=== PATIENT | female | born 1975 | race Caucasian/White ===

== ENCOUNTER 2024-04-30 18:25 | Observation (INO) ==
--- NOTE | 2024-04-30 19:57 | Emergency Department Note ---
History of Present Illness General Chief complaint: Medication Request Stated complaint: ALLERGIC REACTION TO MEDS,INSOMNIA Time Seen by Provider: 04/30/24 19:12 History of Present Illness This is a 49-year-old female that presents to the emergency department via private vehicle with complaints of "insomnia, intermittent vision change, left ear ringing". The patient notes that months ago she began with trouble sleeping. She only sleeps a few hours every night. She notes trialing a variety of medicines with minimal relief. She does note intermittent vision change and intermittent left ear ringing. She notes at times she will feel a palpitation. She denies history of similar but states that the above symptoms have been ongoing intermittently for several months now. She states that she has been to several hospitals, inpatient mental health at [facility], and has seen her PCP several times with continuation of symptoms. Patient does note intermittent sensation of hot and chills. She notes history of splenectomy. No fever. No SI or HI. Home Medications Medication Instructions Recorded Confirmed Type No Known Home Medications 04/30/24 04/30/24 History Allergies Allergy/AdvReac Type Severity Reaction Status Date / Time prednisone Allergy Mild Unknown Verified 04/30/24 23:01 Corticosteroids AdvReac Mild HIGH DOSES Verified 04/28/24 11:02 (Glucocorticoids) CAUSES CONFUSION/PSYCHOSIS diphenhydramine AdvReac hyperactivi Verified 04/30/24 23:01 [From Benadryl] ty olanzapine AdvReac Agitated Verified 04/30/24 23:01 Past Med/Surg History Problem List (Updated 05/01/24 @ 03:07 by Tano Mcduffie PA-C) Cognitive complaints Restless sleeper Snoring Memory change Ataxia Change in hearing (Acute) Vertigo Tinnitus (Acute) Anxiety about health Insomnia (Acute) Medical History Vitamin D deficiency Leukocytosis Chronic since 2003 since her splenectomy Surgical History History of splenectomy Family History (Updated 03/10/24 @ 08:35 by Barb Ritchie) Mother Dyslipidemia Thyroid disease Father Diabetes Hypertension Heart disease Brother Dyslipidemia Grandmother Diabetes Social History Smoking Status: Current some day smoker Tobacco Type: Cigarettes Second Hand Exposure: No; Do You Dip or Chew Tobacco: No; Tobacco Cessation Education Requested by Patient: No Hx Alcohol Use: No Hx Substance Use: No Preferred Language: Bulgarian Communication Ability: Effective Visual Impairment: Limited Hearing Ability: Normal Flight Information Expediter Required: No Beliefs That Will Affect Care: None marital status: Life Partner Current Living Situation: Spouse current occupational status: employed Feels Safe at Home: Yes Safety Concerns: Feels Safe At This Time Childhood Exposure to Second-Hand Smoke: No Diet: regular caffeine: No Dental Care, Regularly: Yes Physical Activity Frequency: 1-2 Times per Week Seatbelt Use: always Sunscreen Use: No Assistive Devices: Glasses Review of Systems A total of 10 systems reviewed and were otherwise negative Physical Exam Vital Signs Vital Signs - 24 hr 04/30/24 18:29 04/30/24 22:43 Temperature 36.4 C L Temperature Source Temporal Artery Scan Pulse Rate 98 H Pulse Rate [Right Finger] 80 Pulse Rhythm [Right Finger] Regular Pulse Strength [Right Finger] Normal Respiratory Rate 22 18 Respiratory Effort / Characteristics Non-Labored Non-Labored Respiratory Depth Normal Normal Respiratory Pattern Regular Blood Pressure 160/96 H Blood Pressure [Right Arm] 130/84 Blood Pressure Mean 117 Blood Pressure Mean [Right Arm] 99 Blood Pressure Position [Right Arm] Sitting Pulse Oximetry 96 99 Oxygen Delivery Method Room Air Room Air Sepsis Recent Fever Within 48 Hours No Sepsis New/Unexplained Change in Mental Status No Sepsis Action Taken by Nursing No Action Required VITAL SIGNS - Vital signs and nursing notes were reviewed. Stable and afebrile. GENERAL -49-year-old female appearing her stated age who is in no acute distress. Communicates well with provider and answers questions appropriately. SKIN - Without rashes. No meningeal or petechial rash. HEAD - NC/AT. EYES - PERRL with EOMI bilaterally. Sclera anicteric. EARS - No deformities of external structures noted on gross examination bilaterally. NOSE - Midline and without cyanosis. No epistaxis or purulent drainage noted. MOUTH/OROPHARYNX - Without perioral cyanosis. NECK - Neck with FROM. No nuchal rigidity. LUNGS - CTA CARDIAC - RRR EXTREMITIES - No clubbing or peripheral cyanosis. +5/5 strength noted in UE/LE bilaterally. NEUROLOGIC - Cranial nerves II through XII grossly intact. PSYCH - alert, oriented and pleasant on exam. Medical Decision Making Laboratory Data 04/30/24 22:24 04/30/24 23:05 Lab Results 04/30/24 04/30/24 Range/Units 22:24 23:05 WBC 20.34 H (4.8-10.8) K/ul RBC 4.66 (4.20-5.40) M/uL Hgb 14.7 (12.0-16.0) g/dl Hct 42.8 (37.0-47.0) % MCV 91.8 (80.0-100.0) fL MCH 31.5 (25.0-34.0) pg MCHC 34.3 (32.0-36.0) g/dL RDW Std Deviation 48.8 H (36.4-46.3) fL RDW Coeff of Luis Fernando 14.4 (11.5-14.5) % Plt Count 412 H (130-400) K/uL MPV 10.0 (9.4-12.4) fL Immature Gran % (Auto) 0.4 % Neut % (Auto) 57.1 % Lymph % (Auto) 31.7 % [place] % (Auto) 9.2 % Eos % (Auto) 1.3 % Baso % (Auto) 0.3 % Neut # (Auto) 11.62 H (1.40-6.50) K/uL Lymph # (Auto) 6.44 H (1.20-3.40) K/uL [place] # (Auto) 1.87 H (0.11-0.59) K/uL Eos # (Auto) 0.26 (0.00-0.50) K/uL Baso # (Auto) 0.07 (0.00-0.20) K/uL Immature Gran # (Auto) 0.08 (0.01-0.20) K/uL ESR 23 H (0-20) mm/hr Sodium 139 (136-145) mmol/L Potassium TNP 4.0 Chloride 106 (98-107) mmol/L Carbon Dioxide 28 (21-32) mmol/L Anion Gap 5 (3-11) BUN 14 (6-23) mg/dl Creatinine 0.59 L (0.6-1.2) mg/dl Est Cr Clr Drug Dosing 104.8 ml/min eGFR 111.79 BUN/Creatinine Ratio 23.7 H (10-20) Glucose 134 H (70-99(Fasting)) mg/dl Calcium 9.7 (8.6-10.3) mg/dl Total Bilirubin 0.4 (0.2-1.0) mg/dl AST TNP 13 ALT 18 (7-52) U/L Alkaline Phosphatase 78 (34-104) U/L C-Reactive Protein < 0.50 (0-0.5) mg/dl Total Protein 7.2 (6.0-8.3) gm/dl Albumin 4.3 (3.4-5.0) gm/dl Globulin 2.9 (2.5-4.0) gm/dl Albumin/Globulin Ratio 1.5 (0.9-2) Procalcitonin Cancelled < 0.02 TSH 1.458 (0.300-4.500) uIu/ml Free T4 0.94 (0.61-1.60) ng/dl MDM Narrative Patient was seen and evaluated as above in room D01a. Review was performed of triage nursing notes and vital signs. I did review pertinent previous visits and patient history. After obtaining a thorough history and physical examination the above work up was performed. Patient presents to us today for evaluation of insomnia, as well as intermittent vision change and intermittent left-sided tinnitus. The patient also notes intermittent agitation. She questions if she could be experiencing serotonin syndrome and inquires about cyproheptadine. Options of care were discussed with the patient. I did recommend labs however the nurse then came to me and noted that the patient then was refusing labs. I went to bedside and the patient noted that she was anxious about what the labs or imaging may uncover and then went on to state how she does not think this is just anxiety. I informed the patient that I would like to evaluate for other medical causes of her symptoms. She was then agreeable. Labs were drawn. Leukocytosis similar to previous 20.34. No anemia. ESR mildly elevated at 23. Metabolic panel without emergent finding. Patient does inquire about hospitalization. I recommended imaging and then she noted she wanted to hold off on imaging. I did consult the hospitalist service. Ultimately plan will be for admission, please refer to further documentation regarding her stay. GCS: 15 In the evaluation and treatment of this patient the following differential diagnoses were entertained: Electrolyte disturbance, infection, mental health ideology, structural abnormalities within the brain, among others. Impression & Plan Insomnia, Change in hearing, Tinnitus Discharge Plan Visit Data Chief Complaint: Medication Request Stated Complaint: ALLERGIC REACTION TO MEDS,INSOMNIA ED Provider: [facility] ED Midlevel Provider: Tano Mcduffie Discharge Problem: Insomnia, Change in hearing, Tinnitus Patient Disposition: Admitted As Inpatient Condition: Good Discharge Instructions Interventions: ED Discharge Assessment Last Done: 05/01/24 02:13
[2024-04-30 22:48] LABS: Hematocrit (blood only) 42.8 % (37.0-47.0); Hemoglobin 14.7 g/dl (12.0-16.0); Mean Corpuscular Hemoglobin 31.5 pg (25.0-34.0); Mean Corpuscular Hgb Conc 34.3 g/dL (32.0-36.0); Mean Corpuscular Volume 91.8 fL (80.0-100.0); Platelet Count 412 K/uL (130-400); RDW Coefficient of Variation 14.4 % (11.5-14.5); RDW Standard Deviation 48.8 fL (36.4-46.3); Red Blood Count 4.66 M/uL (4.20-5.40); White Blood Count 20.34 K/ul (4.8-10.8)
[2024-04-30 23:11] LABS: Alanine Aminotransferase 18 U/L (7-52); Albumin Globulin Ratio 1.5 (0.9-2); Albumin Level 4.3 gm/dl (3.4-5.0); Alkaline Phosphatase 78 U/L (34-104); Anion Gap 5 (3-11); BUN Creatinine Ratio 23.7 (10-20); Bilirubin,Total 0.4 mg/dl (0.2-1.0); Blood Urea Nitrogen 14 mg/dl (6-23); C Reactive Protein < 0.50 mg/dl (0-0.5); Calcium 9.7 mg/dl (8.6-10.3); Carbon Dioxide 28 mmol/L (21-32); Chloride 106 mmol/L (98-107); Creatinine Clr Calc Pharmacy 104.8 ml/min; Globulin 2.9 gm/dl (2.5-4.0); Glucose 134 mg/dl (70-99(Fasting)); Sodium 139 mmol/L (136-145); Total Protein 7.2 gm/dl (6.0-8.3)
[2024-04-30 23:17] LABS: Basophils # (auto) 0.07 K/uL (0.00-0.20); Basophils % (auto) 0.3 %; Eosinophils # (auto) 0.26 K/uL (0.00-0.50); Eosinophils % (auto) 1.3 %; Immature Granulocytes # (auto) 0.08 K/uL (0.01-0.20); Immature Granulocytes % (auto) 0.4 %; Lymphocytes # (auto) 6.44 K/uL (1.20-3.40); Lymphocytes % (auto) 31.7 %; Monocytes # (auto) 1.87 K/uL (0.11-0.59); Monocytes % (auto) 9.2 %; Neutrophils # (auto) 11.62 K/uL (1.40-6.50); Neutrophils % (auto) 57.1 %
[2024-04-30 23:26] LABS: Thyroid Stimulating Hormone 1.458 uIu/ml (0.300-4.500)
--- NOTE | 2024-04-30 23:54 | History & Physical Report ---
Date of Service April 30, 2024 Assessment & Plan (1) Insomnia: (2) Tinnitus: Plan 49 yo female with no significant past medical history besides prior splenectomy admitted for insomnia and chronic tinnitus. Over the last several months the patient has developed chronic insomnia usually sleeping only a maximum of one hour at a time. #Insomnia/Tinnitus unclear etiology. differential is broad CT scan obtained, plan for MRI B12, folate, RPR ordered LH, FSH, T3, T4 ordered Peripheral smear sent Homocysteine Autoimmune labs ordered CBC, CMP, Mag for AM UA negative UDS negative FENGI: regular Code status: full DVT prophylaxis: low risk Isolation: none Disposition: med/tele History of Present Illness Primary Care Provider: Nadir eNwman DO 49 yo female with no significant past medical history besides prior splenectomy admitted for insomnia and chronic tinnitus. Over the last several months the patient has developed chronic insomnia usually sleeping only a maximum of one hour at a time. Reportedly has not had more than a few hours of sleep since January. Was recently at the [facility] where she was evaluated and diagnosed with anxiety. She has been on a number of psychoactive medications, most recently was started on Seroquel 100mg qHS. Continues to have insomnia that she states is making her life miserable. She has also developed persistent tinnitus (after the insomnia) that is severely impacting her quality of life. She does report some degree of ataxia and cognitive difficulty. ED Course UDS, UCx ordered. UA negative for infection Allergies Allergy/AdvReac Type Severity Reaction Status Date / Time prednisone Allergy Mild Unknown Verified 04/30/24 23:01 Corticosteroids AdvReac Mild HIGH DOSES Verified 04/28/24 11:02 (Glucocorticoids) CAUSES CONFUSION/PSYCHOSIS diphenhydramine AdvReac hyperactivi Verified 04/30/24 23:01 [From Benadryl] ty olanzapine AdvReac Agitated Verified 04/30/24 23:01 Home Medications Medication Instructions Recorded Confirmed Type No Known Home Medications 04/30/24 04/30/24 History Past Med/Surg History Problem List (Updated 05/01/24 @ 03:07 by Tano Mcduffie PA-C) Cognitive complaints Restless sleeper Snoring Memory change Ataxia Change in hearing (Acute) Vertigo Tinnitus (Acute) Anxiety about health Insomnia (Acute) Medical History Vitamin D deficiency Leukocytosis Chronic since 2003 since her splenectomy Surgical History History of splenectomy Family History (Updated 03/10/24 @ 08:35 by Barb Ritchie) Mother Dyslipidemia Thyroid disease Father Diabetes Hypertension Heart disease Brother Dyslipidemia Grandmother Diabetes Social History Smoking Status: Current some day smoker Tobacco Type: Cigarettes Second Hand Exposure: No; Do You Dip or Chew Tobacco: No; Hx Alcohol Use: No Hx Substance Use: No Preferred Language: Syriac Communication Ability: Effective Visual Impairment: Limited Hearing Ability: Normal Sorting Cows Worker Required: No Beliefs That Will Affect Care: None marital status: Life Partner Current Living Situation: Spouse current occupational status: employed Feels Safe at Home: Yes Childhood Exposure to Second-Hand Smoke: No Diet: regular caffeine: No Dental Care, Regularly: Yes Physical Activity Frequency: 1-2 Times per Week Seatbelt Use: always Sunscreen Use: No Assistive Devices: Glasses Review of Systems Review of Systems: reviewed, per HPI Physical Exam Physical Exam: Constitutional: well-appearing, no acute distress HEENT: NCAT, no conjunctival injection CV: well perfused Resp: no increased work of breathing GI: nondistended MSK: no gross deformities appreciated Skin: warm, dry, no rash appreciated Neuro: alert, oriented, no focal neurologic deficit appreciated Results & Data Results & Data Vital Signs (Past 12 Hours) Vital Signs Temp Pulse Pulse Resp BP BP Pulse Ox 04/30/24 22:43 80 18 130/84 99 04/30/24 18:29 36.4 C L 98 H 22 160/96 H 96 O2 Del Method 04/30/24 22:43 Room Air 04/30/24 18:29 Room Air Supervising Physician Co-Signing Physician Notes Attending addendum: I have physically seen this patient, have supervised the medical billing assistant's activities, and agree with the H&P unless as otherwise noted. Assessment and Plan: The patient is a 49-year-old female with past medical history significant for splenectomy, chronic insomnia, anxiety who presents to the emergency department with worsening issues with sleeping over the past number of months, and associated tinnitus. [facility]. Insomnia/tinnitus- Admit to monitored bed Ordering CTA head and neck Patient will need MRI of brain/IAC, however, MRI unavailable this evening Ordering vitamin B12, folate, RPR, LH, FSH, TSH, free T4, free T3, peripheral smear, homocystine, lupus anticoagulant, antiphospholipid antibody, beta-2 microglobulin Patient has been on a number of medications in the outpatient setting with out success in improving symptoms, and further medications would not be attempted at this time Remaining orders and notations as noted Resident Activity Tracking Resident Involvement: Resident Care Provided Care Provided: Adult [facility] Medicine
[2024-05-01 00:55] LABS: T4 Free Thyroxine 0.94 ng/dl (0.61-1.60)
[2024-05-01 01:27] LABS: Folate (Folic Acid),Ser orPlas 16.93 ng/ml (>5.38)
--- NOTE | 2024-05-01 01:48 | CT Scan Report ---
EXAM: CT head/brain wo con CLINICAL HISTORY: tinnitus, insomnia TECHNIQUE: Multiple axial images are obtained from the skull base to the vertex without contrast. CT scan was performed according to ALARA (as low as reasonable achievable). COMPARISON: None. FINDINGS: The brain shows normal morphology, attenuation, and volume for age. No evidence of space occupying lesion, hemorrhage, edema, mass effect, midline shift, extra axial collection, or hydrocephalus is noted. Ventricles, sulci, and basal cisterns are symmetric and normal in size and configuration. The sen-white matter differentiation is preserved. Visualized paranasal sinuses and mastoid air cells are well aerated. Orbital contents are within normal limits. Bony structures are intact. IMPRESSION: 1. No evidence of acute intracranial abnormality is demonstrated Electronically signed by Grzegorz Chaudhry 05-01-2024 01:48 AM
[2024-05-01] MEDS ORDERED: MAGNESIUM HYDROXIDE SUSP 30 ML UDC PO PRN (02:13)
[2024-05-01] MEDS ORDERED: MELATONIN 3 MG TAB PO PRN (02:13)
[2024-05-01] MEDS ORDERED: ONDANSETRON INJ 2 MG/ML 2 ML VIAL IV PRN (02:13)
[2024-05-01] MEDS ORDERED: ALUMINUM/MAGNESIUM SUSP 30 ML UDC PO PRN (02:13)
[2024-05-01] MEDS ORDERED: POLYETHYLENE (MIRALAX) 17 GM PACK PO PRN (02:13)
[2024-05-01] MEDS ORDERED: ACETAMINOPHEN 500 MG TAB PO PRN (02:13)
[2024-05-01 02:54] LABS: Follicle Stimulating Hormone 9.33 IU/L
[2024-05-01 02:55] LABS: Luteinizing Hormone 3.87 IU/L
[2024-05-01 03:51] LABS: Appearance Urine Cloudy (Clear); Bacteria Urine Automated 3+ (None Seen); Bilirubin Urine 1+ (Negative); Blood Urine Negative (Negative); Cast Urine Automated 0-2 /lpf (0-2); Color Urine Dark Yellow; Glucose Urine UA Negative (Negative); Ketones Urine Trace (Negative); Leukocyte Esterase Urine Trace (Negative); Mucus Urine Present (None Prsent); Nitrite Urine Negative (Negative); Protein Urine Negative (Negative); RBC Urine Automated >20 /hpf (0-2); Specific Gravity Urine 1.022 (1.000-1.030); Urobilinogen Urine Negative (Negative); pH Urine 5.5 (4.5-7.5)
[2024-05-01 03:52] LABS: Amphetamines+Metham, Urine Neg (Neg); Barbiturates, Urine Neg (Neg); Benzodiazepine, Urine Neg (Neg); Cocaine, Urine Neg (Neg); Fentanyl, Urine Neg (Neg); MDMA (Ecstacy), Urine Neg (Neg); Marijuana, Urine Pos (Neg); Methadone, Urine Neg (Neg); Opiate, Urine Neg (Neg); Phencyclidine, Urine Neg (Neg)
[2024-05-01] MEDS: LORazepam 1 MG TAB PO PRN (11:23)
--- NOTE | 2024-05-01 13:06 | Magnetic Resonance Report ---
EXAM: MR brain wo con CLINICAL HISTORY: Insomnia TECHNIQUE: MRI of the brain was performed without contrast with multiplanar sequences obtained. COMPARISON: No previous studies are available for comparison. FINDINGS: Brain Parenchyma: No evidence of acute infarction or hemorrhage. Normal sen-white matter differentiation. No mass lesions or focal cortical abnormalities were identified. Ventricles and Sulci: Normal size and configuration of the lateral ventricles, third ventricle, and fourth ventricle. No evidence of hydrocephalus or ventriculomegaly. Sylvian fissures, sulci, and cisterns are within normal limits. Posterior Fossa: The cerebellum and brainstem appear normal without evidence of mass lesions or signal abnormalities. Cranial Nerves: Normal course and appearance of cranial nerves identified. Vessels: No evidence of vascular malformations or aneurysms. Intracranial arteries and veins appear normal without evidence of stenosis or occlusion. Orbits and Skull Base: Orbits and skull base structures are normal without evidence of abnormalities. IMPRESSION: 1. No acute intracranial abnormality was identified. 2. Normal appearance of brain parenchyma, ventricular system, posterior fossa, cranial nerves, vessels, orbits, and skull base. Electronically signed by Luis Alfredo Theodore 05-01-2024 13:06 PM
[2024-05-01] MEDS ORDERED: LORazepam 1 MG TAB PO PRN (17:31)
--- NOTE | 2024-05-01 18:33 | Magnetic Resonance Report ---
MRI brain of the IACs History: Hearing or balance changes Comparison: Same-day MRI Technique: Multiphasic, multisequence MRI of the IACs performed with and without IV contrast. 7 mL Gadavist IV. Findings: High resolution T2 weighted images through the brainstem show the internal auditory canals appear clear. No CPA mass. No abnormal IAC enhancement. Impression: Normal MRI of the IACs. Electronically signed by Andreas Kauffman 05-01-2024 6:33 PM
[2024-05-01] MEDS ORDERED: ZOLPIDEM TARTRATE 5 MG TAB PO PRN (20:40)
[2024-05-01] MEDS ORDERED: ZOLPIDEM TARTRATE 5 MG TAB PO SCH (21:00)
--- NOTE | 2024-05-01 22:44 | Hospitalist Progress Note ---
Date of Service May 01, 2024 Assessment & Plan (1) Insomnia: (2) Tinnitus: Plan 49 yo female with no significant past medical history besides prior splenectomy admitted for insomnia and chronic tinnitus. Over the last several months the patient has developed chronic insomnia usually sleeping only a maximum of one hour at a time. #Insomnia/Tinnitus unclear etiology. differential is broad CT scan obtained, plan for MRI B12, folate, RPR ordered LH, FSH, T3, T4 ordered Peripheral smear sent Homocysteine Autoimmune labs ordered CBC, CMP, Mag for AM UA negative UDS negative MRI BRAIN completed, awaiting IAC component as this was a test Dr. Ruddy dimas in the outpatient setting. Ordered benzo with melatonin. Will reports she has tried all other classes of medications for insomnia which do not help including trazodone, mirtazepine, among other. Patient has appointment with sleep medicine provider in May. FENGI: regular Code status: full DVT prophylaxis: low risk Isolation: none Disposition: med/tele Admission and Anticipated Discharge Date Admission Date: April 30, 2024 Subjective 49 yo female reports no new symptoms. She remains concerned about her isomnia. Physical Exam Physical Exam: Constitutional: well-appearing, no acute distress HEENT: NCAT, no conjunctival injection CV: well perfused Resp: no increased work of breathing GI: nondistended MSK: no gross deformities appreciated Skin: warm, dry, no rash appreciated Neuro: alert, oriented, no focal neurologic deficit appreciated Results & Data Results & Data Vital Signs (Past 12 Hours) Vital Signs Temp Pulse Pulse Resp BP Pulse Ox O2 Del Method 05/01/24 20:41 36.5 C 96 H 16 124/82 98 Room Air 05/01/24 17:30 36.7 C 86 18 132/78 98 Room Air 05/01/24 11:00 36.7 C 89 18 137/81 97 Room Air 05/01/24 10:53 83 PG Care Time/CCT Total # of Minutes Spent Total Time Spent with Patient: Total time spent is greater than 50% in coordination of care (as documented) at patient's floor/unit and/or counseling patient: Coding Level of Care Code 24815 SUB INP/OBS CARE 3/50MIN Diagnoses Insomnia G47.00 Tinnitus H93.19 Time Spent (min) 50
[2024-05-01] MEDS: LORazepam 0.5 MG TAB PO SCH (22:45)
[2024-05-01] MEDS: LORazepam 2 MG/1 ML VIAL IV STA (23:03)
--- NOTE | 2024-05-02 01:56 | Billing Data ---
Date of Service May 02, 2024 Coding Level of Care Code 03874 INT INP/OBS CARE
[2024-05-02] MEDS: LORazepam 0.5 MG TAB PO PRN (03:50)
[2024-05-02 06:13] LABS: Hematocrit (blood only) 39.5 % (37.0-47.0); Hemoglobin 13.3 g/dl (12.0-16.0); Mean Corpuscular Hemoglobin 31.1 pg (25.0-34.0); Mean Corpuscular Hgb Conc 33.7 g/dL (32.0-36.0); Mean Corpuscular Volume 92.5 fL (80.0-100.0); Mean Platelet Volume 9.9 fL (9.4-12.4); Platelet Count 397 K/uL (130-400); RDW Coefficient of Variation 14.6 % (11.5-14.5); RDW Standard Deviation 49.6 fL (36.4-46.3); Red Blood Count 4.27 M/uL (4.20-5.40); White Blood Count 16.74 K/ul (4.8-10.8)
[2024-05-02 06:33] LABS: Acanthocytes 1+; Basophils # (auto) 0.07 K/uL (0.00-0.20); Basophils % (auto) 0.4 %; Eosinophils # (auto) 0.31 K/uL (0.00-0.50); Eosinophils % (auto) 1.9 %; Immature Granulocytes # (auto) 0.05 K/uL (0.01-0.20); Immature Granulocytes % (auto) 0.3 %; Lymphocytes % (auto) 31.7 %; Monocytes # (auto) 1.68 K/uL (0.11-0.59); Neutrophils # (auto) 9.33 K/uL (1.40-6.50); Neutrophils % (auto) 55.7 %
[2024-05-02 06:36] LABS: Albumin Globulin Ratio 1.5 (0.9-2); Albumin Level 3.7 gm/dl (3.4-5.0); BUN Creatinine Ratio 29.1 (10-20); Bilirubin,Total 0.4 mg/dl (0.2-1.0); Calcium 8.9 mg/dl (8.6-10.3); Creatinine Clr Calc Pharmacy 112.4 ml/min; Globulin 2.4 gm/dl (2.5-4.0); Magnesium 2.1 mg/dl (1.7-2.4); Potassium 4.3 mmol/L (3.5-5.1); Total Protein 6.1 gm/dl (6.0-8.3)
[2024-05-02 07:23] VITALS: RESP 16
--- NOTE | 2024-05-02 07:36 | Hospitalist Progress Note ---
Date of Service May 02, 2024 Assessment & Plan (1) Insomnia: (2) Tinnitus: Plan 49 yo female with no significant past medical history besides prior splenectomy admitted for insomnia and chronic tinnitus. Over the last several months the patient has developed chronic insomnia usually sleeping only a maximum of one hour at a time. #Insomnia/Tinnitus unclear etiology. differential is broad CT scan of her head unremarkable, MRI brainunremarkable, auditory canal appear clear B12, folate, normal LH& FSH normal, thyroid normal Homocysteine Autoimmune labs ordered CBC, CMP, Mag for AM UA negative UDS positive for marijuana Ordered benzo with melatonin. Patient reports she has tried all other classes of medications for insomnia which do not help including trazodone, mirtazepine, among other. Patient has appointment with sleep medicine provider in May. SOURAV: regular Code status: full DVT prophylaxis: low risk Admission and Anticipated Discharge Date Admission Date: April 30, 2024 Results & Data Results & Data Vital Signs (Past 12 Hours) Vital Signs Temp Pulse Resp BP BP Pulse Ox O2 Del Method 05/02/24 07:19 97.2 F L 82 16 137/84 99 Room Air 05/02/24 07:02 97.7 F 87 20 113/80 97 Room Air 05/02/24 05:58 97.5 F L 85 18 120/80 99 05/01/24 23:21 97.3 F L 91 H 16 116/75 96 Room Air 05/01/24 20:41 97.7 F 96 H 16 124/82 98 Room Air PG Care Time/CCT Total # of Minutes Spent Total Time Spent with Patient: Total time spent is greater than 50% in coordination of care (as documented) at patient's floor/unit and/or counseling patient: Coding Diagnoses Insomnia G47.00 Tinnitus H93.19
[2024-05-02] MEDS: GADOBUTROL 7.5ML VIAL IV ONE (08:31)
[2024-05-02] MEDS: clonazePAM 0.5 MG TAB PO STA (08:33)
[2024-05-02 10:56] VITALS: PULSE 103; TEMP 98.6; O2SAT 97
[2024-05-02 13:28] VITALS: BP 124/82
--- NOTE | 2024-05-02 16:18 | Discharge Summary ---
Discharge Summary Date of Service May 02, 2024 Principal Dx & Hospital Course #1 = Principal Diagnosis (1) Insomnia: (2) Tinnitus: Plan 49 yo female with no significant past medical history besides prior splenectomy admitted for insomnia and chronic tinnitus. Over the last several months the patient has developed chronic insomnia usually sleeping only a maximum of one hour at a time. During the hospital stay the patient was frustrated with the lack of improvement with attempted medications of benzodiazepines. She requested intravenous medication to try to help her sleep which was not supplied to her #Insomnia/Tinnitus unclear etiology. differential is broad CT scan of her head unremarkable, MRI brainunremarkable, auditory canal appear clear B12, folate, normal, B1 normal, D3 slightly low 28 compared to a low normal at 30 ceruloplasmin is normal magnesium is normal iron is normal LH& FSH normal, thyroid normal Homocysteine is currently pending Autoimmune labs ordered UA negative UDS positive for marijuana patient states she has previously been a chronic user of marijuana stopped in November but recently began to take a small amount to try to help her sleep. I spoke to the patient and her (her was on the cell phone) on multiple occasions, she voiced frustration feeling that she is not getting help with her insomnia however given her list of medications wears her and given me that she cannot tolerate there is very little for us to offer his medicines include trazodone Remeron prazosin gabapentin Seroquel Lunesta Ambien olanzapine Xanax doxepin and now Ativan and clonazepam. At discharge I did speak her primary care physician Dr. Smith to notify her provider that the patient is being discharged. I gave her counseling to discontinue her cannabis use Notes For Next Care Provider Difficult patient perhaps referral to sleep disorder center at a tertiary center could be in order Admission HPI Per Admitting Provider 49 yo female with no significant past medical history besides prior splenectomy admitted for insomnia and chronic tinnitus. Over the last several months the patient has developed chronic insomnia usually sleeping only a maximum of one hour at a time. Reportedly has not had more than a few hours of sleep since January. Was recently at the [facility] where she was evaluated and diagnosed with anxiety. She has been on a number of psychoactive medications, most recently was started on Seroquel 100mg qHS. Continues to have insomnia that she states is making her life miserable. She has also developed persistent tinnitus (after the insomnia) that is severely impacting her quality of life. She does report some degree of ataxia and cognitive difficulty. ED Course UDS, UCx ordered. UA negative for infection Discharge Exam Patient awake alert appropriate I believe she has ability make decisions even after taking benzodiazepine Card exam is regular lungs are clear abdomen NABS there is no tremulousness no hyperreflexia Discharge Plan Discharge Items Patient Disposition: Home - Self-Care Reason For Visit: INSOMNIA, TINNITUS Discharge Diagnosis: insomnia Condition on Discharge: Good Activity: Resume your previous activity Non-emergency contact: Primary Care Provider Call non-emergency contact if: your symptoms worsen Follow-up/Referrals: Nadir Newman DO [Primary Care Provider] - 05/05/24 11:30 am (Hospital follow up scheduled on 05/05/24 at 11:[address] Newman) Diet: Regular Addtl Attending Provider Instructions: Sleep Hygiene Tips Sleep hygiene refers to practices that promote quality sleep.Here are some evidence-based tips to improve your sleep: Establish a Regular Sleep Schedule: * Go to bed and wake up at the same time each day, even on weekends. * Avoid napping during the day, especially in the late afternoon or evening. Create a Relaxing Sleep Environment: * Make your bedroom dark, quiet, and cool. * Use blackout curtains, earplugs, or a white noise machine. * Avoid using electronic devices in bed, such as phones, tablets, or laptops. Wind Down Before Bed: * Avoid stimulating activities, such as watching TV, using social media, or working, before bed. * Take a warm bath, read a book, or listen to calming music. * Establish a consistent bedtime routine to signal to your body that it's time to sleep. Limit Caffeine and Alcohol: * Avoid caffeine and alcohol at least 4-6 hours before bed. * Caffeine is a stimulant that can interfere with sleep, while alcohol may initially make you drowsy but can disrupt sleep later on. Exercise Regularly: * Exercise earlier in the day, preferably in the morning or afternoon. * Avoid strenuous exercise close to bedtime, as it can stimulate the body and make it harder to fall asleep. Get Enough Sleep: * Most adults need 7-9 hours of sleep per night. * If you're not getting enough sleep, you may experience daytime fatigue, irritability, and difficulty concentrating. Other Tips: * Use a comfortable bed and pillow. * Consider using a sleep mask if you're sensitive to light. * If you have trouble falling asleep after 20 minutes, get out of bed and do something relaxing until you feel tired. * Avoid eating or drinking large amounts before bed. * Consult a healthcare professional if you have persistent sleep problems or underlying medical conditions that may affect your sleep. Pending Studies at Discharge: Yes Studies:: homocysteine Stand-Alone Forms: My [facility] [employer], Smoking Cessation Medications and DC Order Prescriptions: No Action No Known Home Medications Discharge Orders: Discharge Order (Routine); Ordered 05/02/24 Ordered By: Nadir Lemus Admission Data Admit Date/Time: 04/30/24 23:53 Attending Provider: Nadir Lemus Admit Provider: Tommy Campos Primary Care Provider: Nadir Newman Other Providers: Joe Zamudio Other Interventions: Discharge Summary Assessment (RN) Last Done: 05/02/24 13:26 Hospital Stay Data Consultations 04/30/24 23:31 ED Decision to Admit Stat Diagnostic Imagining Performed 05/01/24 00:50 CT head/brain wo con Stat 05/01/24 11:12 MR brain wo con Urgent 05/01/24 17:28 MR brain IAC wo/w con Stat Pending Results Patient Have Any Pending Studies at Discharge: Yes Discharge Instructions Given to Patient (Per Discharging Provider) Sleep Hygiene Tips Sleep hygiene refers to practices that promote quality sleep.Here are some evidence-based tips to improve your sleep: Establish a Regular Sleep Schedule: * Go to bed and wake up at the same time each day, even on weekends. * Avoid napping during the day, especially in the late afternoon or evening. Create a Relaxing Sleep Environment: * Make your bedroom dark, quiet, and cool. * Use blackout curtains, earplugs, or a white noise machine. * Avoid using electronic devices in bed, such as phones, tablets, or laptops. Wind Down Before Bed: * Avoid stimulating activities, such as watching TV, using social media, or working, before bed. * Take a warm bath, read a book, or listen to calming music. * Establish a consistent bedtime routine to signal to your body that it's time to sleep. Limit Caffeine and Alcohol: * Avoid caffeine and alcohol at least 4-6 hours before bed. * Caffeine is a stimulant that can interfere with sleep, while alcohol may initially make you drowsy but can disrupt sleep later on. Exercise Regularly: * Exercise earlier in the day, preferably in the morning or afternoon. * Avoid strenuous exercise close to bedtime, as it can stimulate the body and make it harder to fall asleep. Get Enough Sleep: * Most adults need 7-9 hours of sleep per night. * If you're not getting enough sleep, you may experience daytime fatigue, irritability, and difficulty concentrating. Other Tips: * Use a comfortable bed and pillow. * Consider using a sleep mask if you're sensitive to light. * If you have trouble falling asleep after 20 minutes, get out of bed and do something relaxing until you feel tired. * Avoid eating or drinking large amounts before bed. * Consult a healthcare professional if you have persistent sleep problems or underlying medical conditions that may affect your sleep. Total Time Total Time Spent Total Time Spent (In Minutes): It required greater than 30 minutes to prepare this patient for discharge. Coding Level of Care Code 85089 INP/OBS DISCH >30 MIN Diagnoses Insomnia G47.00 Tinnitus H93.19
[2024-05-04 15:07] LABS: Marijuana Quant, GCMS Urine 39 ng/mL (<5)
[2024-05-05 06:57] LABS: B2 Glycoprotein IgG <2.0 U/mL (<20.0); B2 Glycoprotein IgM <2.0 U/mL (<20.0)
[2024-05-05 11:37] LABS: PTT LA Screen 44 sec (<=40)
[2024-05-06 08:09] LABS: Lupus Hex Phase (Rflxdonotord) Negative (Negative)
== END 2024-05-02 14:00 | disposition home or self-care (01) | DRG 887 ==
LOC: ED 18:25 → SUATTDRO 23:53 → EDINP 23:53 → INTOOBSV 23:53 → 2N 05-01 02:13

== ENCOUNTER 2024-05-26 12:47 | Inpatient (IN) ==
--- NOTE | 2024-05-26 13:19 | Emergency Department Note ---
Impression & Plan Insomnia, Anxiety ED Provider Note NAME: TOMMY BONILLA AGE: 49 SEX: F : 1975 ARRIVES VIA: Walk-In INFORMANT: Patient, ED PROVIDER(S): Mukund Salgado MD CHIEF COMPLAINT: Outpatient referral, not sleeping MEDICAL DECISION MAKING: Patient presents due to concern for mental wellness concern. Blood work was obtained. Patient with white count of 16 but denies any infectious symptoms normal H&H. Mild thrombocytosis of 440. Kidney function is unremarkable. Urinalysis shows questionable infection but currently does not endorse symptoms. Salicylate Tylenol alcohol negative. Benzo positive patient has trialed Ativan recently did receive Ativan today due to concerns for anxiety. THC positive but known history of marijuana use. COVID-negative. Patient was seen and evaluated by psych case technician referrals were made to [facility] and the patient was accepted by Dr. Olson. Discussion w/ other healthcare providers: ED case management Prior /Outside records reviewed: Patient was discharged on May 02. Patient minutes for insomnia and chronic tinnitus. Patient did have CT head and MRI brain which were unremarkable. UDS positive for marijuana. Patient reportedly was trialed trazodone Remeron prazosin gabapentin Seroquel Lunesta Ambien olanzapine Xanax doxepin as well as Ativan and Klonopin. I did review an on-call duty note from Dr. Goldstein from May 15 which noted that the patient had called and recently started Abilify. Patient did have a sleep disorder visit noted from Dr. Foley from May 19. Patient was to trial Dayvigo 5 mg before bedtime. Differential diagnosis: Mood disorder, infection, hypoglycemia, electrolyte abnormalities, dehydration, medication side effect among others were considered. Diagnostics, as interpreted by me: ECG: None Medical decision rules: None Imaging studies: None HPI:Patient presented to the emergency department today. Patient's PCP Dr. Etienne had a consult to [facility] due to concerns that the patient is becoming more manic. Patient with a history of by bipolar affective disorder OCD and PTSD with chronic insomnia. She reportedly called Dr. Ford's office up to 9 times this morning. The patient has been prescribed medications for insomnia but this has not been helping. Patient initially was requesting to leave the emergency department. Patient currently denies any SI HI or AVH. Patient does report that she fell that Until a few months ago until she has been having the symptoms. Patient reports that she did have an inpatient stay at the [facility] but left for 48 hours because it was not helping. Patient is currently on Vistaril for sleep. She denies taking any other medications. PAST MEDICAL HISTORY: See Below PAST SURGICAL HISTORY: See Below SOCIAL HISTORY: See Below HOME MEDICATIONS: See Below ALLERGIES: See Below VITALS: See Below PHYSICAL EXAMINATION: GENERAL: NAD, non-toxic. EYE EXAM: Normal conjunctiva. PERRL, no anisocoria and EOM's grossly intact w/o pain. OROPHARYNX: Moist mucus membranes, grossly normal dentition. NECK: Trachea midline, no stridor. LUNGS: Clear to auscultation. Normal chest wall mechanics. HEART: NSR, no MRG. ABDOMEN: Abdomen soft, non-tender, no masses, no rebound or guarding. BACK: No CVA TTP. SKIN: No rashes and no bruising. UPPER EXTREMITIES: Upper extremities are grossly normal. LOWER EXTREMITIES: Grossly normal, no edema. NEURO EXAM: A&O x3, cranial nerves II-XII grossly intact, normal speech, moves all 4 extremities. Psych: Anxious, denies SI/HI/AVH. Past Med/Surg History Problem List (Updated 05/26/24 @ 20:06 by Mukund Salgado MD) Anxiety (Acute) Insomnia (Acute) Insomnia (Acute) Cognitive complaints Restless sleeper Snoring Memory change Ataxia Vertigo Anxiety about health Medical History Tinnitus Insomnia Vitamin D deficiency Leukocytosis Surgical History History of splenectomy Family History Mother Dyslipidemia Thyroid disease Father Diabetes Hypertension Heart disease Brother Dyslipidemia Grandmother Diabetes Social History Smoking Status: Never smoker Tobacco Type: Cigarettes Second Hand Exposure: No; Do You Dip or Chew Tobacco: No; Hx Alcohol Use: No Hx Substance Use: No Preferred Language: Iraqi Communication Ability: Effective Visual Impairment: Limited Hearing Ability: Normal Document Management Technician Required: No Beliefs That Will Affect Care: None marital status: Life Partner Current Living Situation: Spouse current occupational status: employed Feels Safe at Home: Yes Childhood Exposure to Second-Hand Smoke: No Diet: regular caffeine: No Dental Care, Regularly: Yes Physical Activity Frequency: 1-2 Times per Week Seatbelt Use: always Sunscreen Use: No Gender Identity: Female Assistive Devices: Glasses Allergies Allergies Allergy/AdvReac Type Severity Reaction Status Date / Time prednisone Allergy Mild Unknown Verified 05/23/24 14:32 Corticosteroids AdvReac Mild HIGH DOSES Verified 05/23/24 14:32 (Glucocorticoids) CAUSES CONFUSION/PSYCHOSIS aripiprazole [From Abilify] AdvReac feeling Verified 05/23/24 14:32 numb diphenhydramine AdvReac hyperactivi Verified 05/23/24 14:32 [From Benadryl] ty olanzapine AdvReac Agitated Verified 05/23/24 14:32 Home Meds Previous Rx's Medication Instructions Recorded temazepam 15 mg capsule (Restoril) 15 mg PO DAILY insomnia #15 caps 05/25/24 Results & Data (ED) Vital Signs Vital Signs - 24 hr 05/26/24 12:53 05/26/24 14:50 Temperature 36.6 C Temperature Source Temporal Artery Scan Pulse Rate 96 H Respiratory Rate 18 Respiratory Effort / Characteristics Non-Labored Non-Labored Spontaneous Respiratory Depth Normal Normal Respiratory Pattern Regular Blood Pressure 139/86 Blood Pressure Mean 103 Blood Pressure Position Sitting Pulse Oximetry 96 Oxygen Delivery Method Room Air Sepsis Recent Fever Within 48 Hours No Sepsis New/Unexplained Change in Mental Status N/A Sepsis Action Taken by Nursing No Action Required Laboratory Data 05/26/24 14:10 05/26/24 14:10 Lab Results 05/26/24 05/26/24 05/26/24 Range/Units 14:10 14:12 14:51 WBC 16.33 H (4.8-10.8) K/ul RBC 4.73 (4.20-5.40) M/uL Hgb 14.9 (12.0-16.0) g/dl Hct 43.6 (37.0-47.0) % MCV 92.2 (80.0-100.0) fL MCH 31.5 (25.0-34.0) pg MCHC 34.2 (32.0-36.0) g/dL RDW Std Deviation 46.3 (36.4-46.3) fL RDW Coeff of Luis Fernando 13.5 (11.5-14.5) % Plt Count 440 H (130-400) K/uL MPV 9.8 (9.4-12.4) fL Immature Gran % (Auto) 0.3 % Neut % (Auto) 60.7 % Lymph % (Auto) 29.1 % [place] % (Auto) 7.6 % Eos % (Auto) 1.9 % Baso % (Auto) 0.4 % Neut # (Auto) 9.91 H (1.40-6.50) K/uL Lymph # (Auto) 4.76 H (1.20-3.40) K/uL [place] # (Auto) 1.24 H (0.11-0.59) K/uL Eos # (Auto) 0.31 (0.00-0.50) K/uL Baso # (Auto) 0.06 (0.00-0.20) K/uL Immature Gran # (Auto) 0.05 (0.01-0.20) K/uL Sodium 137 (136-145) mmol/L Potassium 4.8 (3.5-5.1) mmol/L Chloride 104 (98-107) mmol/L Carbon Dioxide 28 (21-32) mmol/L Anion Gap 5 (3-11) BUN 19 (6-23) mg/dl Creatinine 0.60 (0.6-1.2) mg/dl Est Cr Clr Drug Dosing 102.9 ml/min eGFR 111.34 BUN/Creatinine Ratio 31.7 H (10-20) Glucose 126 H (70-99(Fasting)) mg/dl Calcium 9.5 (8.6-10.3) mg/dl Total Bilirubin 0.2 (0.2-1.0) mg/dl AST 15 (13-39) U/L ALT 17 (7-52) U/L Alkaline Phosphatase 77 (34-104) U/L Total Protein 7.3 (6.0-8.3) gm/dl Albumin 4.6 (3.4-5.0) gm/dl Globulin 2.7 (2.5-4.0) gm/dl Albumin/Globulin Ratio 1.7 (0.9-2) TSH 0.822 (0.300-4.500) uIu/ml Urine Color Yellow Urine Appearance Clear (Clear) Urine pH 6.0 (4.5-7.5) Ur Specific [place] 1.013 (1.000-1.030) Urine Protein Negative (Negative) Urine Glucose (UA) Negative (Negative) Urine Ketones Negative (Negative) Urine Blood 1+ H (Negative) Urine Nitrite Negative (Negative) Urine Bilirubin Negative (Negative) Urine Urobilinogen Negative (Negative) Ur Leukocyte Esterase 2+ H (Negative) Urine WBC (Auto) 11-20 H (0-5) /hpf Urine RBC (Auto) 3-5 H (0-2) /hpf U Hyaline Cast (Auto) 0-2 (0-2) /lpf U Epithel Cells (Auto) 6-10 H (0-2) /hpf Urine Bacteria (Auto) 2+ H (None Seen) Talc Crystals Present H (None Prsent) Salicylates < 3.0 L (3.0-30) mg/dl Urine Opiates Screen Neg (Neg) Ur Methadone, Qual Neg (Neg) Urine Fentanyl Screen Neg (Neg) Acetaminophen < 3 L (10-30) ug/ml Urine Barbiturates Neg (Neg) Ur Phencyclidine (PCP) Neg (Neg) U Amphetamin/Meth Scrn Neg (Neg) MDMA (Ecstasy) Screen Neg (Neg) U Benzodiazepines Scrn Pos H (Neg) Ur Cocaine Metabolite Neg (Neg) U Marijuana (THC) Screen Pos H (Neg) Ethyl Alcohol mg/dL < 10.0 (<10.0) mg/dl SARS-CoV-2, RNA, NAAT NEGATIVE (NEGATIVE) Administered Medications Chlorpromazine HCl (Chlorpromazine Hcl 25 Mg Tab) 50 mg PO HS PRN PRN Reason: Agitation Stop: 06/25/24 21:59 Last Admin: 05/26/24 19:16 Dose: 50 mg Documented By: YADIRA Lorazepam (Lorazepam 0.5 Mg Tab) 0.5 mg PO TID PRN PRN Reason: Panic Stop: 06/25/24 17:02 Last Admin: 05/26/24 18:37 Dose: 0.5 mg Documented By: YADIRA Discontinued Medications Chlorpromazine HCl (Chlorpromazine Hcl 25 Mg Tab) 50 mg PO NOW ONE Stop: 05/26/24 16:29 Last Admin: 05/26/24 16:39 Dose: 50 mg Documented By: YADIRA Lorazepam (Lorazepam 1 Mg Tab) 1 mg SL NOW STA Stop: 05/26/24 14:35 Last Admin: 05/26/24 14:46 Dose: Not Given Documented By: BCN Discharge Plan Visit Data Chief Complaint: Mental Health Evaluation Stated Complaint: MENTAL HEALTH EVAL ED Provider: Mukund Salgado Discharge Problem: Insomnia, Anxiety Patient Disposition: Home - Self-Care Discharge Instructions Interventions: ED Discharge Assessment Last Done: 05/26/24 16:00 Discharge Problem: Insomnia Qualifiers: Insomnia type: unspecified Qualified Code(s): G47.00 - Insomnia, unspecified
[2024-05-26 14:36] LABS: Basophils # (auto) 0.06 K/uL (0.00-0.20); Basophils % (auto) 0.4 %; Eosinophils # (auto) 0.31 K/uL (0.00-0.50); Eosinophils % (auto) 1.9 %; Hematocrit (blood only) 43.6 % (37.0-47.0); Hemoglobin 14.9 g/dl (12.0-16.0); Immature Granulocytes # (auto) 0.05 K/uL (0.01-0.20); Immature Granulocytes % (auto) 0.3 %; Lymphocytes # (auto) 4.76 K/uL (1.20-3.40); Lymphocytes % (auto) 29.1 %; Mean Corpuscular Hemoglobin 31.5 pg (25.0-34.0); Mean Corpuscular Hgb Conc 34.2 g/dL (32.0-36.0); Mean Corpuscular Volume 92.2 fL (80.0-100.0); Mean Platelet Volume 9.8 fL (9.4-12.4); Monocytes # (auto) 1.24 K/uL (0.11-0.59); Monocytes % (auto) 7.6 %; Neutrophils # (auto) 9.91 K/uL (1.40-6.50); Neutrophils % (auto) 60.7 %; Platelet Count 440 K/uL (130-400); RDW Coefficient of Variation 13.5 % (11.5-14.5); RDW Standard Deviation 46.3 fL (36.4-46.3); Red Blood Count 4.73 M/uL (4.20-5.40); White Blood Count 16.33 K/ul (4.8-10.8)
[2024-05-26 14:42] LABS: Acetaminophen < 3 ug/ml (10-30); Salicylate < 3.0 mg/dl (3.0-30)
[2024-05-26] MEDS: LORazepam 1 MG TAB SL STA (14:46)
[2024-05-26 15:10] LABS: Albumin Globulin Ratio 1.7 (0.9-2); Albumin Level 4.6 gm/dl (3.4-5.0); BUN Creatinine Ratio 31.7 (10-20); Bilirubin,Total 0.2 mg/dl (0.2-1.0); Calcium 9.5 mg/dl (8.6-10.3); Creatinine Clr Calc Pharmacy 102.9 ml/min; Globulin 2.7 gm/dl (2.5-4.0); Potassium 4.8 mmol/L (3.5-5.1); Total Protein 7.3 gm/dl (6.0-8.3)
[2024-05-26 15:24] LABS: Thyroid Stimulating Hormone 0.822 uIu/ml (0.300-4.500)
[2024-05-26 15:26] LABS: Appearance Urine Clear (Clear); Bacteria Urine Automated 2+ (None Seen); Bilirubin Urine Negative (Negative); Blood Urine 1+ (Negative); Cast Urine Automated 0-2 /lpf (0-2); Color Urine Yellow; Glucose Urine UA Negative (Negative); Ketones Urine Negative (Negative); Leukocyte Esterase Urine 2+ (Negative); Nitrite Urine Negative (Negative); Protein Urine Negative (Negative); Specific Gravity Urine 1.013 (1.000-1.030); Starch Talc Urine Present (None Prsent); Urobilinogen Urine Negative (Negative)
[2024-05-26] MEDS ORDERED: hydrOXYzine HCl 25 MG TAB PO PRN ×2 (15:45)
[2024-05-26] MEDS ORDERED: BISMUTH SUBSALICYLATE 262 MG CHEW PO PRN (15:45)
[2024-05-26] MEDS ORDERED: MAGNESIUM HYDROXIDE SUSP 30 ML UDC PO PRN (15:45)
[2024-05-26] MEDS ORDERED: ALUMINUM/MAGNESIUM SUSP 30 ML UDC PO PRN (15:45)
[2024-05-26] MEDS ORDERED: SODIUM CHLORIDE 0.65% NA SOLN 45 ML (OCEAN) PRN (15:45)
[2024-05-26] MEDS ORDERED: ACETAMINOPHEN 325 MG TAB PO PRN (15:45)
[2024-05-26 16:04] LABS: Amphetamines+Metham, Urine Neg (Neg); Barbiturates, Urine Neg (Neg); Benzodiazepine, Urine Pos (Neg); Cocaine, Urine Neg (Neg); Fentanyl, Urine Neg (Neg); MDMA (Ecstacy), Urine Neg (Neg); Marijuana, Urine Pos (Neg); Methadone, Urine Neg (Neg); Opiate, Urine Neg (Neg); Phencyclidine, Urine Neg (Neg)
[2024-05-26] MEDS: chlorproMAZINE HCL 25 MG TAB PO ONE (16:39)
[2024-05-26] MEDS: LORazepam 0.5 MG TAB PO PRN (18:37)
[2024-05-26] MEDS: chlorproMAZINE HCL 25 MG TAB PO PRN (19:16)
--- NOTE | 2024-05-27 08:54 | History & Physical ---
Date of Service May 27, 2024 Impression / Recommendations Impression TOMMY BONILLA is a 49-year-old woman who currently lives in [place] with her significant other Perez, has a history of OCD, splenectomy, and tinnitus, and was admitted on 05/26/24 16:22 on a 201 voluntary commitment for severe insomnia and concern for ermias. She put in a 72 hour notice after arriving to the unit which will on 05/29/2024 at 1622. At this time it is unclear if she would meet criteria for 302 commitment, but ongoing hospitalization is warranted to ensure she at least has outpatient care and ideally a medication regimen to allow her to function outside of the hospital. Her partner is in support of ongoing hospitalization. Diagnostically consistent with manic episode in the context of suspected bipolar disorder, with severe insomnia, anxiety, and history of mild OCD. Medical causes have been largely ruled out by recent inpatient medical hospitalization for insomnia, outpatient visits with sleep disorder clinic, rheumatology and with her primary care office. Recent labs notable for elevated white blood cell count, but this appears chronic and she reports this has been the case since her splenectomy. Patient reports hair thinning and skin changes, likely related to sleep deprivation, no evidence for thyroid issue at this time. No family history of bipolar disorder but onset of symptoms occurred a few months ago and age of onset falls within second peak for bipolar disorder in women during perimenopausal-postmenopausal period. Differential includes chronic insomnia with subsequent increased anxiety and memory issues vs obstructive sleep apnea (though sleep medicine felt this was less likely) vs very rare possibility of sporadic fatal insomnia given report of past ataxia and some autonomic changes but still felt to be very unlikely at this time. Discussed treatment options in detail. Reviewed risks, benefits and alternatives. Patient to start lithium for mood stabilization with twice daily dosing. She consents to this and consents to continuing with Thorazine, as off- label use for mood stabilization and insomnia, will increase to further target insomnia and ermias. Will also continue Ativan available as needed for anxiety, ermias and sleep. Nursing reports approximately 2.5 hours of sleep achieved after initial Thorazine dose last night and then another 1.75 hours after subsequent dose and without any side effects today. Reviewed side effects including but not limited to: sedation, dizziness, confusion with ativan; movement (TD, NMS), cardiac (QTc prolongation), and metabolic (stroke, insulin resistance) and necessity for fasting lipid and glucose labwork and AIMS done with score of 0 with Thorazine and baseline labs of thyroid function, kidney function, weight, electrolytes, CBC with platelets, and UA were preformed and reviewed for use of Sagamore. Provided education on risks of dehydration, renal, thyroid, cardiac, drug interactions (NSAIDs, ACEIs, angiotensin receptor antagonists, risks) however given her level of restlessness and lack of sleep she struggles to retain information so frequent re-education and medication side effect handout information will also be provided. I also reviewed the medications and treatment plan over the phone with her partner, Perez. MNPR-ermias and restlessness and need for sleep promotion Overall I spent a total of 75 minutes for this admission including review of chart records, review of labwork, direct evaluation of the patient, counseling the patient, ordering medication, risk assessment, discussion with the psychiatric liason RN and documentation in the electronic health record. (1) Bipolar I disorder with ermias: (2) Anxiety: (3) Insomnia: Insomnia type: unspecified Qualified Code(s): G47.00 - Insomnia, unspecified Plan 05/27/2024:The patient was admitted to the [facility] ([facility]) on q15 min checks (behavioral with suicide precautions) for safety. The patient will participate in group, recreational, and milieu therapies and will be offered additional individual and family sessions as clinically appropriate. -Will start Sagamore carbonate 300mg BID -Started and will titrate to Thorazine 200mg HS po -Ativan 1mg TID prn for ermias -Taper prior to admission clonidine to 0.1mg HS to avoid rebound hypertension with taper to discontinuation in coming days -Continue prior to admission propranolol 20mg BID for ongoing HTN -In-lab sleep study scheduled recently by sleep disorder clinic, unclear what date this is will done Inventory Assets Strengths: supportive relationships, somewhat willing to get treatment Needs: safety and stabilization, medication adjustment, additional coping skills, increased outpatient services Suicide Risk Level Suicide Risk Level: Moderate (q15 min suicide checks) (mood lability with ermias and recent statements of passive SI to family, able to ask for staff support and denies current SI) Risk Factors Assessment Male: No : Yes Do You Have Access To A Gun?: No Health Problems: No Mental Health Diagnoses: Yes Substance Use Disorders: No Previous Attempt: No Family History of Suicide: No Previous Psychiatric Hospitalization: Yes Hopelessness: No Protective Factors Assessment Employed: Yes Stable Relationships: Yes Supportive Family: Yes Psychiatric History Identifying Data TOMMY BONILLA is a 49-year-old woman who currently lives in [place] with her significant other Perez, has a history of OCD, splenectomy, and tinnitus, and was admitted on 05/26/24 16:22 on a 201 voluntary commitment for severe insomnia and concern for ermias. Chief Complaint "I think being here is making my sleep worse, my wants to me to come home". History of Present Illness She presents for psychiatric admission for severe insomnia and symptoms suggestive of ermias in the context of a history of mild OCD. She reports being unable to sleep for an extended period, despite trying various medications. She has been calling her outpatient providers office repeatedly, up to 9 times in half a morning, yesterday before admission due to her ongoing level of distress about not sleeping. She reported cardiac symptoms overnight and hospitalist pro vider recommended an EKG and troponin labwork both of which were normal. Today she remains very restless and anxious. Has been calling her significant other repeatedly and often asks the same question repeatedly, doesn't retain information well. She describes lying awake most of the night, possibly resting her eyes for about an hour. These symptoms have been ongoing for at least a few months. She denies feeling tired despite the lack of sleep and instead reports feeling restless and unable to sit still. She endorses symptoms including hair thinning and skin changes, which she attributes to her lack of sleep. She notes that her appearance has changed significantly in recent months. She expresses anxiety about being in a locked psychiatric unit, as she had expected to be in a different part of the hospital on the medical floor. She reports that she was 'fine just a few months ago,' and doesn't understand why she had such a sudden onset of her current symptoms. She is currently prescribed psychiatric medications, but expresses frustration that they are not working, particularly for her sleep issues. Psychiatric ROS notable for history of mild OCD diagnosed many years ago, which she describes as 'just like minor.' She denies any family history of bipolar disorder and does not believe she is experiencing ermias, attributing her symptoms to sleep deprivation instead. Additional collateral per conversation with her spouse Perez. He reports that she has been very restless and always on the move at home. He denies any recent or history of psychotic symptoms. She has been organized in her daily activities up until this point but struggles to function. She has expressed to him and to another family member recently that she'd "rather not be around anymore" if her symptoms continued. Past Psychiatric History Current Psychiatric Diagnosis: BPAD, OCD/PTSD Outpatient Services: [facility] therapy with Nela at [email or web address] apparently recently started [facility] Previous Psych Admissions: [facility] in recent months, left after a few days - mental health program at [facility] but only attended briefly Do You Have Access To A Gun?: No History of Previous Suicide Attempt: No Past Medication Trials: many for sleep issues including: -benzodiazepines: Xanax, Restoril, Ativan, Klonopin -Antipsychotics: Seroquel, olanzapine, Abilify -Antidepressants: trazodone, mirtazapine, doxepin -gabapentin -prazosin -clonidine -Lunesta, Ambien -Dayvigo 5mg HS started last week by sleep disorder clinic (Dr. Foley) Past Head Trauma/Neuro History History of Concussion/Seizure: No Allergies Allergy/AdvReac Type Severity Reaction Status Date / Time prednisone Allergy Mild Unknown Verified 05/23/24 14:32 Corticosteroids AdvReac Mild HIGH DOSES Verified 05/23/24 14:32 (Glucocorticoids) CAUSES CONFUSION/PSYCHOSIS aripiprazole [From Abilify] AdvReac feeling Verified 05/23/24 14:32 numb diphenhydramine AdvReac hyperactivi Verified 05/23/24 14:32 [From Benadryl] ty olanzapine AdvReac Agitated Verified 05/23/24 14:32 Home Medications Medication Instructions Recorded Confirmed Type temazepam 15 mg capsule (Restoril) 15 mg PO DAILY insomnia #15 caps 05/25/24 05/27/24 Rx alprazolam 0.5 mg tablet 0.5 mg PO DAILY PRN Anxiety 05/27/24 05/27/24 History aripiprazole 5 mg tablet 5 mg PO DAILY 05/27/24 05/27/24 History clonidine HCl 0.2 mg tablet 0.2 mg PO HS 05/27/24 05/27/24 History estradiol 0.5 mg/0.5 gram (0.1 %) 0.5 mg topical DAILY 05/27/24 05/27/24 History transdermal gel packet lemborexant 5 mg tablet (Dayvigo) 5 mg PO HS PRN Insomnia 05/27/24 05/27/24 History progesterone micronized 200 mg 200 mg PO DAILY 05/27/24 05/27/24 History capsule propranolol 20 mg tablet 20 mg PO BID 05/27/24 05/27/24 History Family History Family History of: Other-List under Comment Family Mental Health History Comment: she denies any significant family hx, denies any fam hx of BPAD Alcohol History Hx of Alcohol Use Over the Past 12 Months: No AUDIT Total Score: 0 Smoking Use Have You Smoked or Used Tobacco Products in the Last 30 Days: No Smoking Status: Never smoker Substance History Hx of Prescription Med Misuse Over the Past 12 Months: No Hx of Over the Counter Med Misuse Over the Past 12 Months: No Hx of Inhalent Misuse Over the Past 12 Months: No Hx of Organic Substance Use Over the Past 12 Months: No Hx of Illegal Substances/Street Drug Use Over Past 12 Months: No Problems as a Result of Past Substance Use: None Identified Personal History Marital Status: Living w/ Signif. Other Beliefs That Will Affect Care: None Patient History Medical History Tinnitus Insomnia Vitamin D deficiency Leukocytosis Chronic since 2003 since her splenectomy Surgical History History of splenectomy Family History Mother Dyslipidemia Thyroid disease Father Diabetes Hypertension Heart disease Brother Dyslipidemia Grandmother Diabetes Social History Smoking Status: Never smoker Tobacco Type: Cigarettes Second Hand Exposure: No; Do You Dip or Chew Tobacco: No; Hx Alcohol Use: No Hx Substance Use: No Preferred Language: Georgian Communication Ability: Effective Visual Impairment: Limited Hearing Ability: Normal Splitter Machine Required: No Beliefs That Will Affect Care: None marital status: Life Partner Current Living Situation: Spouse current occupational status: employed Feels Safe at Home: Yes Childhood Exposure to Second-Hand Smoke: No Diet: regular caffeine: No Dental Care, Regularly: Yes Physical Activity Frequency: 1-2 Times per Week Seatbelt Use: always Sunscreen Use: No Gender Identity: Female Assistive Devices: Glasses Review of Systems Review of Systems: All systems reviewed & are unremarkable except as noted in HPI & below Physical Exam Psychiatric: Orientation: alert and oriented x 3 Apperance: appropriately dressed and appropriately groomed Eye Contact: good eye contact Motor Behavior: + psychomotor agitation Speech: + abnormal rate/rhythm/volume of speech (slightly rapid) Affect: + anxious affect Mood: + anxious mood Thought Process: + perseveration Thought Content: + preoccupation Suicidal Thoughts: denies suicidal thoughts, denies suicidal plan and denies suicidal intent Homicidal Thoughts: denies homicidal thoughts Hallucinations: no auditory hallucinations and no visual hallucinations Cognition: remote memory grossly intact, attention grossly intact and language grossly intact; + recent memory not intact Estimated Intelligence: consistent with education level Insight: + limited insight Judgment: + poor judgement Vital Signs (Past 24 Hours): Last Vital Signs Temp 36.8 C 05/26/24 17:42 Pulse 90 05/26/24 17:42 Resp 22 05/26/24 17:42 BP 142/87 H 05/26/24 17:42 Pulse Ox 98 05/26/24 17:42 O2 Del Method Room Air 05/26/24 17:42 Exam Statement: A physical exam was performed in the ED by Dr. Salgado for the purposes of medical clearance. I accept that physical as correct and adequate for the purposes of the inpatient physical exam. Results & Data ([facility]) Laboratory Results Laboratory Results - last 24 hr 05/26/24 05/26/24 05/26/24 14:10 14:12 14:51 WBC 16.33 H RBC 4.73 Hgb 14.9 Hct 43.6 MCV 92.2 MCH 31.5 MCHC 34.2 RDW Std Deviation 46.3 RDW Coeff of Luis Fernando 13.5 Plt Count 440 H MPV 9.8 Immature Gran % (Auto) 0.3 Neut % (Auto) 60.7 Lymph % (Auto) 29.1 [place] % (Auto) 7.6 Eos % (Auto) 1.9 Baso % (Auto) 0.4 Neut # (Auto) 9.91 H Lymph # (Auto) 4.76 H [place] # (Auto) 1.24 H Eos # (Auto) 0.31 Baso # (Auto) 0.06 Immature Gran # (Auto) 0.05 Sodium 137 Potassium 4.8 Chloride 104 Carbon Dioxide 28 Anion Gap 5 BUN 19 Creatinine 0.60 Est Cr Clr Drug Dosing 102.9 eGFR 111.34 BUN/Creatinine Ratio 31.7 H Glucose 126 H Calcium 9.5 Total Bilirubin 0.2 AST 15 ALT 17 Alkaline Phosphatase 77 Troponin I High Sens Total Protein 7.3 Albumin 4.6 Globulin 2.7 Albumin/Globulin Ratio 1.7 TSH 0.822 Urine Color Yellow Urine Appearance Clear Urine pH 6.0 Ur Specific Mcgee 1.013 Urine Protein Negative Urine Glucose (UA) Negative Urine Ketones Negative Urine Blood 1+ H Urine Nitrite Negative Urine Bilirubin Negative Urine Urobilinogen Negative Ur Leukocyte Esterase 2+ H Urine WBC (Auto) 11-20 H Urine RBC (Auto) 3-5 H U Hyaline Cast (Auto) 0-2 U Epithel Cells (Auto) 6-10 H Urine Bacteria (Auto) 2+ H Talc Crystals Present H Salicylates < 3.0 L Urine Opiates Screen Neg Ur Methadone, Qual Neg Urine Fentanyl Screen Neg Acetaminophen < 3 L Urine Barbiturates Neg Ur Phencyclidine (PCP) Neg U Amphetamin/Meth Scrn Neg MDMA (Ecstasy) Screen Neg U OH-Alprazolam Confrm Pending U Benzodiazepines Scrn Pos H 7-Amino Clonazepam Pending Ur Nordiazepam Confirm Pending U OH-ethylflurazepam Pending U Lorazepam Cnf GC/MS Pending U Oxazepam Confm GC/MS Pending Ur Temazepam Confirm Pending U OH-Triazolam Confirm Pending U OH-Midazolam Confirm Pending Ur Cocaine Metabolite Neg U Marijuana (THC) Screen Pos H U Marijuana THC Carboxy Pending Drug Screen Comment Pending Ethyl Alcohol mg/dL < 10.0 SARS-CoV-2, RNA, NAAT NEGATIVE 05/27/24 05:05 WBC RBC Hgb Hct MCV MCH MCHC RDW Std Deviation RDW Coeff of Luis Fernando Plt Count MPV Immature Gran % (Auto) Neut % (Auto) Lymph % (Auto) [place] % (Auto) Eos % (Auto) Baso % (Auto) Neut # (Auto) Lymph # (Auto) [place] # (Auto) Eos # (Auto) Baso # (Auto) Immature Gran # (Auto) Sodium Potassium Chloride Carbon Dioxide Anion Gap BUN Creatinine Est Cr Clr Drug Dosing eGFR BUN/Creatinine Ratio Glucose Calcium Total Bilirubin AST ALT Alkaline Phosphatase Troponin I High Sens < 2.3 Total Protein Albumin Globulin Albumin/Globulin Ratio TSH Urine Color Urine Appearance Urine pH Ur Specific Mcgee Urine Protein Urine Glucose (UA) Urine Ketones Urine Blood Urine Nitrite Urine Bilirubin Urine Urobilinogen Ur Leukocyte Esterase Urine WBC (Auto) Urine RBC (Auto) U Hyaline Cast (Auto) U Epithel Cells (Auto) Urine Bacteria (Auto) Talc Crystals Salicylates Urine Opiates Screen Ur Methadone, Qual Urine Fentanyl Screen Acetaminophen Urine Barbiturates Ur Phencyclidine (PCP) U Amphetamin/Meth Scrn MDMA (Ecstasy) Screen U OH-Alprazolam Confrm U Benzodiazepines Scrn 7-Amino Clonazepam Ur Nordiazepam Confirm U OH-ethylflurazepam U Lorazepam Cnf GC/MS U Oxazepam Confm GC/MS Ur Temazepam Confirm U OH-Triazolam Confirm U OH-Midazolam Confirm Ur Cocaine Metabolite U Marijuana (THC) Screen U Marijuana THC Carboxy Drug Screen Comment Ethyl Alcohol mg/dL SARS-CoV-2, RNA, NAAT Current Inpatient Medications Current Inpatient Medications: Current Inpatient Medications Acetaminophen (Acetaminophen 325 Mg Tab) 650 mg PO Q4H PRN PRN Reason: Headache or Minor Fever Stop: 06/25/24 15:44 Al Hydrox/Mg Hydrox/Simethicone (Aluminum/Magnesium Susp 30 Ml Udc) 30 ml PO Q4H PRN PRN Reason: GI Upset Stop: 06/25/24 15:44 Bismuth Subsalicylate (Bismuth Subsalicylate 262 Mg Chew) 2 tab PO Q30M PRN PRN Reason: Loose Stool/Diarrhea Stop: 06/25/24 15:44 Chlorpromazine HCl (Chlorpromazine Hcl 25 Mg Tab) 50 mg PO HS PRN PRN Reason: Agitation Stop: 06/25/24 21:59 Last Admin: 05/26/24 19:16 Dose: 50 mg Hydroxyzine HCl (Hydroxyzine Hcl 25 Mg Tab) 50 mg PO HSZ PRN PRN Reason: Insomnia Stop: 06/25/24 15:44 Hydroxyzine HCl (Hydroxyzine Hcl 25 Mg Tab) 25 mg PO Q4H PRN PRN Reason: Anxiety Stop: 06/25/24 15:44 Lorazepam (Lorazepam 0.5 Mg Tab) 0.5 mg PO TID PRN PRN Reason: Panic Stop: 06/25/24 17:02 Last Admin: 05/26/24 22:33 Dose: 0.5 mg Magnesium Hydroxide (Magnesium Hydroxide Susp 30 Ml Udc) 30 ml PO DAILY PRN PRN Reason: Constipation Stop: 06/25/24 15:44 Sodium Chloride (Sodium Chloride 0.65% Na Soln 45 Ml ([place])) 1 - 2 sprays NA PRN PRN PRN Reason: Nasal Dryness/Congestion Stop: 06/25/24 15:44
[2024-05-27 09:04] VITALS: TEMP 97.9
[2024-05-27] MEDS: PROPRANOLOL HCL 20 MG TAB PO SCH (11:55)
[2024-05-27] MEDS: LITHIUM CARBONATE 300 MG TAB PO SCH (13:02)
[2024-05-27 19:46] VITALS: PULSE 93
[2024-05-27] MEDS: cloNIDine HCL 0.1 MG TAB PO SCH (20:30)
--- NOTE | 2024-05-27 20:30 | Electrocardiogram Report ---
Test Reason : Blood Pressure : */* mmHG Vent. Rate : 99 BPM Atrial Rate : 99 BPM P-R Int : 126 ms QRS Dur : 62 ms QT Int : 332 ms P-R-T Axes : 52 -22 46 degrees QTcB Int : 426 ms Normal sinus rhythm Normal ECG When compared with ECG of 08-May-2024 08:07, No significant change was found Confirmed by Andreas Gamino [id number] on 05/27/2024 8:30:11 PM Referred By: REFERRED SELF Confirmed By: Andreas Gamino
[2024-05-28] MEDS: LORazepam 1 MG TAB PO PRN (00:14)
--- NOTE | 2024-05-28 15:38 | Psychiatric Progress Note ---
Date of Service May 28, 2024 Impression / Recommendations Impression TOMMY BONILLA is a 49-year-old woman who currently lives in [place] with her significant other Perez, has a history of OCD, splenectomy, and tinnitus, and was admitted on 05/26/24 16:22 on a 201 voluntary commitment for severe insomnia and concern for ermias. She put in a 72 hour notice after arriving to the unit which will on 05/29/2024 at 1622. At this time it is unclear if she would meet criteria for 302 commitment, but ongoing hospitalization is warranted to ensure she at least has outpatient care and ideally a medication regimen to allow her to function outside of the hospital. Her partner is in support of ongoing hospitalization. A: Patient presenting with treatment refractory insomnia. Given recent restlessness, pacing, insomnia considering possible bipolar condition with ermias. Cannot r/o primary insomnia. Currently on appropriate mood stabilizers and sleep aids. We will start Flexeril 10 mg at bedtime. Recommended patient to get outpatient sleep study. MNPR-ermias and restlessness and need for sleep promotion Overall I spent a total of 80 minutes for this admission including review of chart records, review of labwork, direct evaluation of the patient, counseling the patient, ordering medication, risk assessment, gathering collateral discussion with the psychiatric liason RN and documentation in the electronic health record. (1) Bipolar I disorder with ermias: (2) Anxiety: (3) Insomnia: Plan 05/28/2024: Schedule lorazepam 1 mg at bedtime (previously prn) Schedule cyclobenzaprine 10 mg at bedtime 05/27/2024:The patient was admitted to the [facility] ([facility] mental health unit) on q15 min checks (behavioral with suicide precautions) for safety. The patient will participate in group, recreational, and milieu therapies and will be offered additional individual and family sessions as clinically appropriate. -Will start Plain carbonate 300mg BID -Started and will titrate to Thorazine 200mg HS po -Ativan 1mg TID prn for ermias -Taper prior to admission clonidine to 0.1mg HS to avoid rebound hypertension with taper to discontinuation in coming days -Continue prior to admission propranolol 20mg BID for ongoing HTN -In-lab sleep study scheduled recently by sleep disorder clinic, unclear what date this is will done Inventory Assets Strengths: supportive relationships, somewhat willing to get treatment Needs: safety and stabilization, medication adjustment, additional coping skills, increased outpatient services Suicide Risk Level Suicide Risk Level: Moderate (q15 min suicide checks) (mood lability with ermias and recent statements of passive SI to family, able to ask for staff support and denies current SI) Risk Factors Assessment Male: No : Yes Do You Have Access To A Gun?: No Health Problems: No Mental Health Diagnoses: Yes Substance Use Disorders: No Previous Attempt: No Family History of Suicide: No Previous Psychiatric Hospitalization: Yes Hopelessness: No Protective Factors Assessment Employed: Yes Stable Relationships: Yes Supportive Family: Yes Interval History Identifying Information TOMMY BONILLA is a 49-year-old woman who currently lives in [place] with her significant other Perez, has a history of OCD, splenectomy, and tinnitus, and was admitted on 05/26/24 16:22 on a 201 voluntary commitment for severe insomnia and concern for ermias. Chief Complaint Insomnia Review of Systems Sleep Information Total Hours of Sleep: 5 Sleep Comments: up most of night with multiple requests. Meal Information Percent Meal Consumed - Breakfast: 100 Percent Meal Consumed - Lunch: 100 Percent Meal Consumed - Dinner: 75 Subjective Subjective Patient was seen & assessed and interval progress reviewed with treatment team nursing and social work Patient reports since last January having severe insomnia. No inciting medications/infections/trauma. At that time was taking B12 supplements, medical cannabis. Denies having associated nightmares. Reports gradually not being able to stay asleep. Reports having normal energy levels and feeling "great". Denies excess hide mood or energy. Complains of intermittent fatigue. Says she has been pacing more and has been restless. Now reports problems with falling asleep and staying asleep. Reports past use of prednisone for idiopathic thrombocytopenic purpura and had an episode of psychosis, confusion, insomnia which resolved after discontinuation of medication. Reports improved sleep in the hospital and less restlessness. Overnight had 2-3 awakenings. Got 5 to 7 hours of sleep. Denies SI and AVH. Denies family history of psychiatric conditions. Reports past PTSD diagnosis so she can get medical cannabis. No regular hypervigilance, nightmares, distressing triggers. Discussed care with at bedside. Agreeable to stay overnight for continued monitoring. Physical Exam Mental Examination Appearance: Unkempt Eye Contact: Maintains Eye Contact Motor Behavior: Restless Speech: Repetitive Mood: Anxious Affect: Anxious Thought Process: [place] and Perseveration Hallucinations: None Insight: Poor Judgement: Poor Vital Signs (Past 24 Hours) Last Vital Signs Temp 36.6 C 05/27/24 09:03 Pulse 93 H 05/27/24 19:45 Resp 16 05/27/24 09:03 BP 155/103 H 05/27/24 19:45 Pulse Ox 98 05/26/24 17:42 O2 Del Method Room Air 05/26/24 17:42 Results & Data ([facility]) Current Inpatient Medications Current Inpatient Medications: Current Inpatient Medications Acetaminophen (Acetaminophen 325 Mg Tab) 650 mg PO Q4H PRN PRN Reason: Headache or Minor Fever Stop: 06/25/24 15:44 Al Hydrox/Mg Hydrox/Simethicone (Aluminum/Magnesium Susp 30 Ml Udc) 30 ml PO Q4H PRN PRN Reason: GI Upset Stop: 06/25/24 15:44 Bismuth Subsalicylate (Bismuth Subsalicylate 262 Mg Chew) 2 tab PO Q30M PRN PRN Reason: Loose Stool/Diarrhea Stop: 06/25/24 15:44 Chlorpromazine HCl (Chlorpromazine Hcl 100 Mg Tab) 200 mg PO HS NIECY Stop: 06/26/24 21:59 Last Admin: 05/27/24 20:31 Dose: 200 mg Clonidine HCl (Clonidine Hcl 0.1 Mg Tab) 0.1 mg PO HS NIECY Stop: 06/26/24 21:59 Last Admin: 05/27/24 20:30 Dose: 0.1 mg Cyclobenzaprine HCl (Cyclobenzaprine Hcl 10 Mg Tab) 10 mg PO HS NIECY Stop: 06/27/24 21:59 Plain Carbonate (Plain Carbonate 300 Mg Tab) 300 mg PO BID NIECY Stop: 06/26/24 12:14 Last Admin: 05/28/24 08:37 Dose: 300 mg Lorazepam (Lorazepam 1 Mg Tab) 1 mg PO HS NIECY Stop: 06/27/24 21:59 Magnesium Hydroxide (Magnesium Hydroxide Susp 30 Ml Udc) 30 ml PO DAILY PRN PRN Reason: Constipation Stop: 06/25/24 15:44 Miscellaneous (Order Awaiting Action) 1 each N/A QS NIECY Stop: 06/26/24 15:59 Last Admin: 05/28/24 08:50 Dose: Not Given Miscellaneous (Order Awaiting Action) 1 each N/A QS NIECY Stop: 06/26/24 15:59 Last Admin: 05/28/24 08:50 Dose: Not Given Propranolol HCl (Propranolol Hcl 20 Mg Tab) 20 mg PO BID NIECY Stop: 06/26/24 11:29 Last Admin: 05/28/24 08:36 Dose: 20 mg Sodium Chloride (Sodium Chloride 0.65% Na Soln 45 Ml (Virgil)) 1 - 2 sprays NA PRN PRN PRN Reason: Nasal Dryness/Congestion Stop: 06/25/24 15:44 Mental Health & Subst Abuse Tx Psychiatrist Name of Psychiatrist: Cornell Bates Psychiatrist's Phone Number: [phone] Date Of Appointment With Psychiatric Provider: 06/01/24 Time of Appointment with Psychiatrist: 10:20am Therapist Name of Therapist: [facility] Therapist's Therapy Appointment Comment: Call to resume services Post Discharge Appointments Primary Care Physician Name Of Family Doctor/PCP: [facility]-Dr. Newman Primary Care Date of Future Appointment with PCP: 06/02/24 Time of Appointment with PCP: 11:30am Contact Information Discharge Discharge Address: [address] [place] [address] (3) Insomnia Insomnia type: unspecified Qualified Code(s): G47.00 - Insomnia, unspecified
[2024-05-28] MEDS: CYCLOBENZAPRINE HCL 5 MG TAB PO ONE (16:58)
[2024-05-28] MEDS: LORazepam 0.5 MG TAB PO STA (19:34)
[2024-05-28] MEDS: CYCLOBENZAPRINE HCL 10 MG TAB PO SCH (20:37)
[2024-05-28 21:02] VITALS: RESP 18; O2SAT 100
[2024-05-29] MEDS: LORazepam 1 MG TAB PO SCH (00:24)
[2024-05-29 07:52] LABS: Estimated Average Glucose 117 mg/dl; Hemoglobin A1C 5.7 % (4.5-5.6)
[2024-05-29 08:02] LABS: Chol HDL Ratio 3.9 (0-5)
--- NOTE | 2024-05-29 10:31 | Discharge Summary ---
Date of Service May 29, 2024 History of Present Illness She presents for psychiatric admission for severe insomnia and symptoms suggestive of ermias in the context of a history of mild OCD. She reports being unable to sleep for an extended period, despite trying various medications. She has been calling her outpatient providers office repeatedly, up to 9 times in half a morning, yesterday before admission due to her ongoing level of distress about not sleeping. She reported cardiac symptoms overnight and hospitalist provider recommended an EKG and troponin labwork both of which were normal. Today she remains very restless and anxious. Has been calling her significant other repeatedly and often asks the same question repeatedly, doesn't retain information well. She describes lying awake most of the night, possibly resting her eyes for about an hour. These symptoms have been ongoing for at least a few months. She denies feeling tired despite the lack of sleep and instead reports feeling restless and unable to sit still. She endorses symptoms including hair thinning and skin changes, which she attributes to her lack of sleep. She notes that her appearance has changed significantly in recent months. She expresses anxiety about being in a locked psychiatric unit, as she had expected to be in a different part of the hospital on the medical floor. She reports that she was 'fine just a few months ago,' and doesn't understand why she had such a sudden onset of her current symptoms. She is currently prescribed psychiatric medications, but expresses frustration that they are not working, particularly for her sleep issues. Psychiatric ROS notable for history of mild OCD diagnosed many years ago, which she describes as 'just like minor.' She denies any family history of bipolar disorder and does not believe she is experiencing ermias, attributing her symptoms to sleep deprivation instead. Additional collateral per conversation with her spouse Perez. He reports that she has been very restless and always on the move at home. He denies any recent or history of psychotic symptoms. She has been organized in her daily activities up until this point but struggles to function. She has expressed to him and to another family member recently that she'd "rather not be around anymore" if her symptoms continued. Physical Exam Mental Examination Appearance: Unkempt Eye Contact: Maintains Eye Contact Motor Behavior: Restless Speech: Repetitive Mood: Anxious Affect: Anxious Thought Process: [place] and Perseveration Hallucinations: None Insight: Poor Judgement: Poor Vital Signs (Past 24 Hours) Last Vital Signs Temp 36.6 C 05/27/24 09:03 Pulse 93 H 05/28/24 20:30 Resp 18 05/28/24 20:30 BP 125/71 05/28/24 20:30 Pulse Ox 100 05/28/24 20:30 O2 Del Method Room Air 05/28/24 20:30 Principal Diagnosis Unspecified mood disorder Psychiatric Data See daily stay summary. In short, safety was maintained and the patient was cooperative with care. Medication changes included starting [place]chase 300mg BID, Thorazine 200mg HS, Lorazepam 1mg HS, Clonidine 0.1mg HS and they tolerated this well. A family session was held and safety plan was completed prior to discharge. The patient presented with a primary complaint of treatment refractory insomnia having tried multiple sedative agents of multiple classes with limited beneifts. Insomnia since Jan 2024 with insidious onset. Has been cleared by rheumatology, PCP, neurology. Sleep medicine recommended hospital sleep study and pending. Pt presented with associated restlessness, pacing behavior, inc anxiety; there is minor suspicion for a bipolar condition and was started on treatment. On the unit the pt demonstrated improved sleep, however continued to remain focused on illness anxiety often requiring reassurance. There is concern for manipulative behaviors and poor insight into her problems as she was resistant to physician recommendations. She signed a 72 hour notice soon after admission. Upon discharge day, she did not present as an imminent risk of harm to herself and others; was able to contract for safety; was future oriented with intact reality testing. It was recommended for her to get the PSG given negative medical w/u and low suspicion for psychiatric cause of insomnia. She was advised to continue her psychiatric medications given slight possibility of bipolar condition and to follow-up with outpatient drSancho Day of Discharge Assessment Today the patient voices readiness for discharge. They note improvement in mood and deny thoughts to harm self or others. Thoughts remain organized and they are improved from admission. There is no evidence of psychosis. They agree to take mediations as prescribed and keep follow-up appointments. They are stable for discharge to outpatient level of care. Transition of Care Transition Of Care Record: was reviewed with the patient Advance Directives Advance Directives Information Provided: Yes Advance Directives: No Mental Health Advance Directive: No Advance Directives on File: No Living Will: No Power of Office Bookkeeper: No Advance Directives Reason:: Declines as Mental Health Visit. Risk Factors Assessment Male: No : Yes Do You Have Access To A Gun?: No Health Problems: No Mental Health Diagnoses: Yes Substance Use Disorders: No Previous Attempt: No Family History of Suicide: No Previous Psychiatric Hospitalization: Yes Hopelessness: No Protective Factors Assessment Employed: Yes Stable Relationships: Yes Supportive Family: Yes Discharge Data Lab Results 05/26/24 05/26/24 05/26/24 14:10 14:12 14:51 WBC 16.33 H RBC 4.73 Hgb 14.9 Hct 43.6 MCV 92.2 MCH 31.5 MCHC 34.2 RDW Std Deviation 46.3 RDW Coeff of Luis Fernando 13.5 Plt Count 440 H MPV 9.8 Immature Gran % (Auto) 0.3 Neut % (Auto) 60.7 Lymph % (Auto) 29.1 [place] % (Auto) 7.6 Eos % (Auto) 1.9 Baso % (Auto) 0.4 Neut # (Auto) 9.91 H Lymph # (Auto) 4.76 H [place] # (Auto) 1.24 H Eos # (Auto) 0.31 Baso # (Auto) 0.06 Immature Gran # (Auto) 0.05 Sodium 137 Potassium 4.8 Chloride 104 Carbon Dioxide 28 Anion Gap 5 BUN 19 Creatinine 0.60 Est Cr Clr Drug Dosing 102.9 eGFR 111.34 BUN/Creatinine Ratio 31.7 H Glucose 126 H Estimat Average Glucose Hemoglobin A1c Calcium 9.5 Total Bilirubin 0.2 AST 15 ALT 17 Alkaline Phosphatase 77 Troponin I High Sens Total Protein 7.3 Albumin 4.6 Globulin 2.7 Albumin/Globulin Ratio 1.7 Triglycerides Cholesterol LDL Cholesterol, Calc VLDL Cholesterol, Calc HDL Cholesterol Cholesterol/HDL Ratio TSH 0.822 Urine Color Yellow Urine Appearance Clear Urine pH 6.0 Ur Specific Henley 1.013 Urine Protein Negative Urine Glucose (UA) Negative Urine Ketones Negative Urine Blood 1+ H Urine Nitrite Negative Urine Bilirubin Negative Urine Urobilinogen Negative Ur Leukocyte Esterase 2+ H Urine WBC (Auto) 11-20 H Urine RBC (Auto) 3-5 H U Hyaline Cast (Auto) 0-2 U Epithel Cells (Auto) 6-10 H Urine Bacteria (Auto) 2+ H Talc Crystals Present H Salicylates < 3.0 L Urine Opiates Screen Neg Ur Methadone, Qual Neg Urine Fentanyl Screen Neg Acetaminophen < 3 L Urine Barbiturates Neg Ur Phencyclidine (PCP) Neg U Amphetamin/Meth Scrn Neg MDMA (Ecstasy) Screen Neg U Benzodiazepines Scrn Pos H Ur Cocaine Metabolite Neg U Marijuana (THC) Screen Pos H Ethyl Alcohol mg/dL < 10.0 SARS-CoV-2, RNA, NAAT NEGATIVE 05/27/24 05/29/24 05:05 06:58 WBC RBC Hgb Hct MCV MCH MCHC RDW Std Deviation RDW Coeff of Luis Fernando Plt Count MPV Immature Gran % (Auto) Neut % (Auto) Lymph % (Auto) [place] % (Auto) Eos % (Auto) Baso % (Auto) Neut # (Auto) Lymph # (Auto) [place] # (Auto) Eos # (Auto) Baso # (Auto) Immature Gran # (Auto) Sodium Potassium Chloride Carbon Dioxide Anion Gap BUN Creatinine Est Cr Clr Drug Dosing eGFR BUN/Creatinine Ratio Glucose Estimat Average Glucose 117 Hemoglobin A1c 5.7 H Calcium Total Bilirubin AST ALT Alkaline Phosphatase Troponin I High Sens < 2.3 Total Protein Albumin Globulin Albumin/Globulin Ratio Triglycerides 111 Cholesterol 193 LDL Cholesterol, Calc 121 VLDL Cholesterol, Calc 22 HDL Cholesterol 50 Cholesterol/HDL Ratio 3.9 TSH Urine Color Urine Appearance Urine pH Ur Specific [place] Urine Protein Urine Glucose (UA) Urine Ketones Urine Blood Urine Nitrite Urine Bilirubin Urine Urobilinogen Ur Leukocyte Esterase Urine WBC (Auto) Urine RBC (Auto) U Hyaline Cast (Auto) U Epithel Cells (Auto) Urine Bacteria (Auto) Talc Crystals Salicylates Urine Opiates Screen Ur Methadone, Qual Urine Fentanyl Screen Acetaminophen Urine Barbiturates Ur Phencyclidine (PCP) U Amphetamin/Meth Scrn MDMA (Ecstasy) Screen U Benzodiazepines Scrn Ur Cocaine Metabolite U Marijuana (THC) Screen Ethyl Alcohol mg/dL SARS-CoV-2, RNA, NAAT Hospital Course (1) Insomnia: (2) Unspecified mood [affective] disorder: (3) Illness anxiety disorder: Plan 05/28/2024: Schedule lorazepam 1 mg at bedtime (previously prn) Schedule cyclobenzaprine 10 mg at bedtime 05/27/2024:The patient was admitted to the [facility] ([facility] mental [facility]) on q15 min checks (behavioral with suicide precautions) for safety. The patient will participate in group, recreational, and milieu therapies and will be offered additional individual and family sessions as clinically appropriate. -Will start [place] carbonate 300mg BID -Started and will titrate to Thorazine 200mg HS po -Ativan 1mg TID prn for ermias -Taper prior to admission clonidine to 0.1mg HS to avoid rebound hypertension with taper to discontinuation in coming days -Continue prior to admission propranolol 20mg BID for ongoing HTN -In-lab sleep study scheduled recently by sleep disorder clinic, unclear what date this is will done Mental Health & Subst Abuse Tx Psychiatrist Name of Psychiatrist: Cornell MagdalenoMelly Psychiatrist's Phone Number: [phone] Date Of Appointment With Psychiatric Provider: 06/01/24 Time of Appointment with Psychiatrist: 10:20am Therapist Name of Therapist: CIRQY Therapist's Therapy Appointment Comment: Call to resume services Post Discharge Appointments Primary Care Physician Name Of Family Doctor/PCP: [facility]-Dr. Newman Primary Care Date of Future Appointment with PCP: 06/02/24 Time of Appointment with PCP: 11:30am Contact Information Discharge Discharge Address: [address] [place] [address] Discharge Plan Discharge Items Patient Disposition: Home - Self-Care Reason For Visit: UNSPECIFIED MOOD DISORDER Discharge Diagnosis: Unspecified mood disorder Illness Anxiety Insomnia Condition on Discharge: Fair Activity: Resume your previous activity Non-emergency contact: Primary Care Provider and Psychiatrist Call non-emergency contact if: you have any medication questions and your symptoms worsen Follow-up/Referrals: Nadir Newman DO [Primary Care Provider] - Diet: Regular Addtl Attending Provider Instructions: Continue medications Follow-up with sleep medicine about hospital sleep study Follow-up with [facility] regarding mental health treatment Pending Studies at Discharge: No Stand-Alone Forms: My [employer], Smoking Cessation Medications and DC Order Prescriptions: New clonidine HCl 0.1 mg Tablet 0.1 mg PO HS Qty: 30 0RF lorazepam 1 mg Tablet 1 mg PO HS Qty: 30 0RF lithium carbonate 300 mg Tablet 300 mg PO BID Qty: 60 0RF chlorpromazine 200 mg tablet 200 mg PO HS Qty: 30 0RF Continued Dayvigo 5 mg tablet 5 mg PO HS PRN (Reason: Insomnia) progesterone micronized 200 mg capsule 200 mg PO DAILY estradiol 0.5 mg/0.5 gram (0.1 %) gel in packet 0.5 mg topical DAILY propranolol 20 mg tablet 20 mg PO BID Discontinued temazepam [Restoril] 15 mg capsule 15 mg PO DAILY Qty: 15 1RF aripiprazole 5 mg tablet 5 mg PO DAILY alprazolam 0.5 mg tablet 0.5 mg PO DAILY PRN (Reason: Anxiety) clonidine HCl 0.2 mg tablet 0.2 mg PO HS Discharge Orders: Discharge Order (Routine); Ordered 05/29/24 Ordered By: Haroon Morrison Admission Data Admit Date/Time: 05/26/24 16:22 Attending Provider: Melissa Olson Admit Provider: Melissa Olson Primary Care Provider: Nadir Newman Other Interventions: Discharge Summary Assessment (RN) Last Done: 05/29/24 10:39 PSY Interdisciplinary Discharge Planning Last Done: 05/29/24 11:03 C[place] [address] D/C day mgmt > 30 min Patient Type Established History Detailed Exam Detailed Medical Decision Making High Complexity Diagnoses Insomnia F51.01 Insomnia type: primary Unspecified mood [affective] disorder F39 Illness anxiety disorder F45.21
[2024-05-29 10:44] VITALS: BP 123/83
[2024-06-01 16:52] LABS: 7-Aminoclonaz, Confirm NEGATIVE ng/mL (<25); Hydro-Alp Ur, GC/MS 32 ng/mL (<25); Hydroxyethylflurazepam, Conf NEGATIVE ng/mL (<50); Hydroxymidazolam Ur, GC/MS NEGATIVE ng/mL (<50); Hydroxytriazolam NEGATIVE ng/mL (<50); Lorazepam, Ur GC/MS NEGATIVE ng/mL (<50); Marijuana Quant, GCMS Urine 24 ng/mL (<5); Nordiazepam, Confirm NEGATIVE ng/mL (<50); Oxazepam Ur, GC/MS 1350 ng/mL (<50); Temazepam, Confirm >2000 ng/mL (<50)
== END 2024-05-29 11:05 | disposition home or self-care (01) | DRG 885 ==
LOC: ED 12:47 → 3S 16:22